=== PATIENT | female | born 1965 | race Hispanic/Latino ===

== ENCOUNTER 2018-04-22 10:31 | Outpatient (CLI) | payer BC | END 2018-04-22 10:32 | disposition home or self-care (01) | LOC: BICMAMMO 10:31 | PROVIDERS: ATTEND Family Medicine | DX: Z12.31 Encounter for screening mammogram for malignant neoplasm of breast (principal) | CPT/HCPCS: 77063; 77067 ==

== ENCOUNTER 2020-02-14 13:02 | Outpatient (CLI) | payer BC ==
--- NOTE | 2020-02-14 14:12 | MMO ---
Bilateral MAMMO Bilat Screen [facility]. CLINICAL HISTORY: Patient is 54 years old and is seen for screening. The patient has no family history of breast cancer. The patient has no personal history of cancer. VIEWS: The views performed were: bilateral craniocaudal with tomosynthesis and bilateral mediolateral oblique with tomosynthesis. FILMS COMPARED: The present examination has been compared to prior imaging studies performed at [facility] on 11/01/2013, 02/21/2015, 05/28/2016 and 04/22/2018. This study has been interpreted with the assistance of computer-aided detection. MAMMOGRAM FINDINGS: The breasts are heterogeneously dense, which could obscure a lesion on mammography. There are stable benign appearing calcifications seen in both breasts. There are also vascular calcifications. There are no suspicious masses, suspicious calcifications, or new areas of architectural distortion. IMPRESSION: THERE IS NO MAMMOGRAPHIC EVIDENCE OF MALIGNANCY. A ROUTINE FOLLOW-UP MAMMOGRAM IN 1 YEAR IS RECOMMENDED. THE RESULTS OF THIS EXAM WERE SENT TO THE PATIENT. ACR BI-RADS Category 2 - Benign finding MAMMOGRAPHY NOTE: 1. A negative mammogram report should not delay a biopsy if a dominant of clinically suspicious mass is present. 2. Approximately 10% to 15% of breast cancers are not detected by mammography. 3. Adenosis and dense breasts may obscure an underlying neoplasm. Reported by: ZANDRA STUBBS MD Electonically Signed: [id number]
== END 2020-02-14 13:03 | disposition home or self-care (01) ==
LOC: BICMAMMO 13:02
PROVIDERS: ATTEND Family Medicine
DX: Z12.31 Encounter for screening mammogram for malignant neoplasm of breast (principal)
CPT/HCPCS: 77063; 77067

== ENCOUNTER 2020-03-20 10:49 | Outpatient (CLI) | payer BC ==
--- NOTE | 2020-03-20 11:02 | RAD ---
XR Shoulder Lt 3 View STANDARD HISTORY: Left shoulder pain. Primary osteoarthritis of the left shoulder FINDINGS: No fracture or dislocation is identified. There are mild degenerative changes in the acromial clavicu lar joint.
== END 2020-03-20 10:50 | disposition home or self-care (01) ==
LOC: BICRAD 10:49
PROVIDERS: ATTEND Internal Medicine Rheumatology
DX: M19.012 Primary osteoarthritis, left shoulder (principal)

== ENCOUNTER 2020-06-27 14:02 | Emergency (ER) | payer BC, SELFPAY ==
[2020-06-27 15:05] LABS: #Eosinphils 0.1 thou/uL (0.0-0.7); #Lymphocytes 1.3 thou/uL (1.20-3.40); #Monocytes 0.3 thou/uL (0.11-0.59); #Neutrophils 3.9 thou/uL (1.40-6.50); %Basophils 0.8 % (0.0-1.0); %Eosinophils 1.9 % (0.0-10.0); %Lymphocytes 22.3 % (21.0-51.0); %Monocytes 5.6 % (0.0-10.0); %Neutrophils 69.4 % (42.0-75.0); Hemoglobin 14.8 g/dL (12.0-16.0); Mean Corpuscular HGB CONC 33.4 g/dL (32.0-36.0); Mean Corpuscular Hemoglobin 30.4 pg (27.0-31.0); Mean Corpuscular Volume 90.9 fL (78.0-98.0); Mean Platelet Volume 8.2 fL (7.4-10.4); Platelet Count 238 thou/uL (130-400); RBC Distribution Width 12.2 % (11.5-14.5); Red Blood Cell (RBC) Count 4.88 mill/uL (4.20-5.40); White Blood Cell (WBC) Count 5.7 thou/uL (4.8-10.8)
[2020-06-27] MEDS ORDERED: Iopamidol 370 76% 100 ML VIAL ONE (15:08)
[2020-06-27 15:38] LABS: ALT (SGPT) 19 U/L (8-55); AST (SGOT) 22 U/L (5-34); Albumin 4.4 g/dL (3.5-5.0); Alkaline Phosphatase 66 U/L (40-110); Anion Gap 13 mmol/L (10-20); BUN (Urea Nitrogen) 12 mg/dL (9.8-20.1); Bilirubin, Total 0.5 mg/dL (0.2-1.2); Calc. Creatinine Clearance 0 mL/min (70-130); Calcium 9.1 mg/dL (7.8-10.44); Carbon Dioxide 29 mmol/L (22-29); Chloride 104 mmol/L (98-107); Estimated GFR-MDRD 81; Globulin 2.9 g/dL (2.4-3.5); Glucose 172 mg/dL (70-105); Lipase 50 U/L (8-78); Potassium 3.6 mmol/L (3.5-5.1); Protein, Total 7.3 g/dL (6.0-8.3); Sodium 142 mmol/L (136-145)
--- NOTE | 2020-06-27 16:19 | CT ---
CT ANGIOGRAM THORAX WITH IV CONTRAST AND 3-D RECONSTRUCTIONS CLINICAL INDICATION: Left upper chest pain. COMPARISON: None FINDINGS: Pulmonary arteries: No filling defects are seen in the pulmonary arteries to suggest a pulmonary embo kavon. Aorta: Minimal scattered vascular calcifications. Lungs: There is a left suprahilar mass measuring 4.6 cm craniocaudal x6.1 cm AP x3.5 cm transverse wi th slightly spiculated margins present. There is attenuation of the left upper lobe pulmonary artery without filling defect seen in the pulmonary artery. A large left pleural effusion is seen wit h atelectasis present on the left as well. Right lung is clear. Mediastinum: No enlarged mediastinal lymph nodes are seen by CT size criteria. Thyroid gland: Limited imaged portion of the thyroid gland demonstrates a normal CT appearance. Osseous structures: No suspicious lytic or sclerotic osseous lesion. Chest wall: No abnormality visualized. Upper abdomen: Only very limited portion of the upper abdomen is imaged. No obvious abnormality is se en for arterial phase of imaging. IMPRESSION: 1. Left upper lobe/suprahilar mass which abuts the hilum and attenuates the left upper lobe pulmonary artery. Findings are worrisome for neoplastic process. 2. Large left pleural effusion and passive atelectasis. 3. Above findings discussed with Olivia Bedoya nurse practitioner in the emergency department on at 1614 hours.
[2020-06-27 17:55] LABS: Bilirubin Negative (Negative); Blood, Urine Negative (Negative); Clarity Clear (Clear); Glucose, Urine (Dipstick) Normal (Negative); Ketone, Urine Negative (Negative); Leukocyte Negative Leu/uL (Negative); Nitrite Negative (Negative); Protein, Urine (Dipstick) 10 mg/dL (Neg-Trace); Urobilinogen Normal mg/dL (Less than 2)
[2020-06-27 17:58] LABS: Specific Gravity, Urine Greater than 1.060 (1.002-1.036)
== END 2020-06-27 18:13 | disposition home or self-care (01) ==
LOC: ERS 14:02
DX: J90 Pleural effusion, not elsewhere classified (principal); R91.8 Other nonspecific abnormal finding of lung field; I10 Essential (primary) hypertension
CPT/HCPCS: 36415; 71275; 80053; 81003; 83690; 85025; Q9967

== ENCOUNTER 2020-07-28 15:29 | Emergency (ER) | payer SELFPAY ==
[2020-07-28] MEDS ORDERED: Morphine 4 MG/ML VIAL ONE ×3 (16:02→17:46)
[2020-07-28 16:15] LABS: #Eosinphils 0.1 thou/uL (0.0-0.7); #Lymphocytes 0.8 thou/uL (1.20-3.40); #Monocytes 0.7 thou/uL (0.11-0.59); #Neutrophils 8.1 thou/uL (1.40-6.50); %Basophils 0.4 % (0.0-1.0); %Eosinophils 0.8 % (0.0-10.0); %Lymphocytes 8.1 % (21.0-51.0); %Monocytes 7.2 % (0.0-10.0); %Neutrophils 83.5 % (42.0-75.0); Hemoglobin 13.3 g/dL (12.0-16.0); Mean Corpuscular HGB CONC 34.4 g/dL (32.0-36.0); Mean Corpuscular Volume 87.3 fL (78.0-98.0); Mean Platelet Volume 6.5 fL (7.4-10.4); Platelet Count 354 thou/uL (130-400); RBC Distribution Width 11.6 % (11.5-14.5); Red Blood Cell (RBC) Count 4.42 mill/uL (4.20-5.40); White Blood Cell (WBC) Count 9.7 thou/uL (4.8-10.8)
[2020-07-28 16:35] LABS: ALT (SGPT) 18 U/L (8-55); AST (SGOT) 20 U/L (5-34); Albumin 3.6 g/dL (3.5-5.0); Alkaline Phosphatase 72 U/L (40-110); Anion Gap 14 mmol/L (10-20); BUN (Urea Nitrogen) 6 mg/dL (9.8-20.1); Bilirubin, Total 0.3 mg/dL (0.2-1.2); Calc. Creatinine Clearance 0 mL/min (70-130); Calcium 8.8 mg/dL (7.8-10.44); Carbon Dioxide 33 mmol/L (22-29); Chloride 88 mmol/L (98-107); Estimated GFR-MDRD Greater than 90; Globulin 2.8 g/dL (2.4-3.5); Glucose 132 mg/dL (70-105); Protein, Total 6.4 g/dL (6.0-8.3); Sodium 132 mmol/L (136-145)
--- NOTE | 2020-07-28 16:37 | RAD ---
Portable frontal chest radiograph: 07/28/2020 COMPARISON: 07/28/2020 HISTORY: Evaluate chest following 1 L of fluid removal FINDINGS: Stable complete opacification of the left hemithorax. Stable drainage catheter overlies the left hemithorax. Stable shift of the mediastinal structures to the right. Right lung appears clear. Heart and mediastinal contours are stable. IMPRESSION: Stable complete opacification of the left hemithorax with shift of the mediastinal struct ures to the right. Opacity within the left hemithorax is consistent with the patient's history of malignancy.
--- NOTE | 2020-07-28 16:40 | RAD ---
Portable frontal chest radiograph: 07/28/2020 COMPARISON: 07/28/2020 HISTORY: Evaluate chest following fluid removal, lung cancer FINDINGS: This study is performed at 4:25 PM and compared to the prior study performed at 3:58 PM. Th ere is stable complete opacification of the left hemithorax with a stable left-sided chest tube in place. There is mediastinal shift to the right which appears slightly improved at the level of the tr achea. The right hemithorax appears clear. IMPRESSION: Stable complete opacification of the left hemithorax. Mild shift of the mediastinal struc tures to the right, slightly improved when compared to the recent prior study.
[2020-07-28] MEDS ORDERED: Potassium Chloride 20 MEQ TAB ONE (16:53)
== END 2020-07-28 18:22 | disposition home or self-care (01) ==
LOC: ERS 15:29
DX: J90 Pleural effusion, not elsewhere classified (principal); C34.92 Malignant neoplasm of unspecified part of left bronchus or lung; I10 Essential (primary) hypertension; E87.6 Hypokalemia; R93.89 Abnormal findings on diagnostic imaging of other specified body structures
CPT/HCPCS: 36415; 71045; 80053; 84484; 85025; 93005; 96374; 96376; J2270